=== PATIENT | male | born 1955 | race Caucasian/White ===

== ENCOUNTER 2016-09-07 21:18 | Emergency (ER) | payer OTHER ==
[2016-09-07 21:25] VITALS: BP 100/66; PULSE 71; TEMP 97; BMI 32.3
--- NOTE | 2016-09-07 22:41 | PDOC ---
History of Present Illness - General Chief Complaint: Injury Stated Complaint: INJURY Time Seen by Provider: 09/07/16 21:45 History Source: Patient Exam Limitations: No Limitations - History of Present Illness Initial Comments: 09/07/16 22:17 Chief complaint: Fall with left arm behind him bracing his fall patient has pain left hand or wrist and forearm History of present illness: Patient is a 61-year-old male with a history of hyperlipidemia, depression, hypertension, [id number] diabetes, asthma , COPD, anemia, cardiac disorder DC 2 and knee replacement with chronic pain patient reports that he fell prior to arrival here tonight bracing his fall with his left hand behind him. Patient reports having severe pain in his left hand, wrist radiating to mid forearm. Patient does not have any gross deformity of hand or wrist or forearm noted. Patient reports that he took a Percocet 10 mg prior to arrival here. Patient denies any numbness of left hand or wrist or forearm. Reports that pain is worse with flexion of fingers or wrist. 09/07/16 22:43 09/08/16 23:42 Occurred: reports: just prior to arrival Severity: reports: severe (left hand, wrist radiates to mid forearm ) Pain Location: reports: upper extremity (left hand/wrist, forearm) Method of Injury: Yes: fall Modifying Factors: improves with: None Loss of Consciousness: no loss of consciousness Associated Symptoms (Fall): denies symptoms Past History - Past Medical History Allergies/Adverse Reactions: Allergies Allergy/AdvReac Type Severity Reaction Status Date / Time morphine Allergy Itching Verified 09/07/16 21:21 Home Medications: Ambulatory Orders Aspirin [ASA -] 81 mg PO DAILY 11/18/14 Atorvastatin Ca [Lipitor] 20 mg PO HS 11/18/14 Clopidogrel Bisulfate [Plavix -] 75 mg PO DAILY 11/18/14 Escitalopram Oxalate [Lexapro -] 20 mg PO DAILY 11/18/14 Fenofibrate Nanocrystallized [Tricor] 145 mg PO DAILY 11/18/14 Lisinopril [Prinivil] 5 mg PO DAILY 11/18/14 Metformin HCl [Glucophage] 1,000 mg PO BID 11/18/14 Metoprolol Succinate [Toprol Xl] 50 mg PO DAILY 11/18/14 Insulin (Levemir) [Levemir Vial] 20 units SQ HS ml 06/11/15 Oxycodone HCl/Acetaminophen [Percocet 10-325 mg Tablet -] 1 - 2 tab PO Q4H #180 tablet 06/11/15 Pantoprazole Sodium [Protonix -] 40 mg PO DAILY #30 tablet.ec 06/11/15 Anemia: Yes (after knee replacement) Asthma: Yes Cancer: No Cardiac Disorders: Yes (palpitations/chest pain, MIx2) CVA: No COPD: Yes CHF: No Dementia: No Diabetes: Yes GI Disorders: No Disorders: No HTN: Yes Hypercholesterolemia: Yes Liver Disease: No Suicide Attempt (Hx): No Seizures: No Thyroid Disease: No - Surgical History Abdominal Surgery: No Appendectomy: Yes Cardiac Surgery: Yes (STENT X 23 OCT 2012) Cholecystectomy: No Lung Surgery: Yes ("lung lymph node biopsy") Neurologic Surgery: No Orthopedic Surgery: Yes (bilateral knee surgries) - Psycho/Social/Smoking Cessation Hx Anxiety: Yes Suicidal Ideation: No Smoking Status: Yes Smoking History: Current every day smoker Have you smoked in the past 12 months: Yes Number of Cigarettes Smoked Daily: 40 Information on smoking cessation initiated: Yes 'Breaking Loose' booklet given: 09/07/16 Hx Alcohol Use: No Drug/Substance Use Hx: No Substance Use Type: None Hx Substance Use Treatment: No Review of Systems - Review of Systems Constitutional: Yes: Symptoms Reported Respiratory: No: Symptoms reported Cardiac (ROS): No: Symptoms Reported Musculoskeletal: Yes: Joint Pain (left hand, wrist radiates to left forearm), Joint Swelling (minimal left wrist) Integumentary: No: Symptoms Reported Neurological: No: Symptoms reported *Physical Exam - Vital Signs Last Vital Signs Temp Pulse Resp BP Pulse Ox 97 F L 71 18 100/66 97 09/07/16 21:21 09/07/16 21:21 09/07/16 21:21 09/07/16 21:21 09/07/16 21:21 - Physical Exam Respiratory/Chest: positive: Lungs Clear, Normal Breath Sounds. negative: Chest Tender, Respiratory Distress Cardiovascular: positive: Regular Rhythm, Regular Rate, S1, S2 Comments:: 09/08/16 23:42 Radial pulse left 4+ Musculoskeletal: positive: Normal Inspection. negative: CVA Tenderness, CVA Tenderness (R), CVA Tenderness (L), Vertebral Tenderness Extremity: positive: Normal Capillary Refill, Tender (left dorsal hand, left wrist b/l, left distal to mid forearm dorsally), Swelling (minimal left wrist b/ l ). negative: Normal Range of Motion (left wrist ) Integumentary: positive: Normal Color Neurologic: positive: Alert, Normal Response, Respond to painful stimul (left hand, finger, wrist and forearm), Responsive. negative: Numbness, Sensory Deficit (left hand/digits, wrist and forearm) Procedures - Consent Consent obtained: From Patient - Splinting Splint Location: Left: Wrist, Forearm Pre-Proc Neuro Vasc Exam: normal Hand-Made Type: orthoglass Splint Type: Yes: Short Arm (left volar/dorsal ) Post-Proc Neuro Vasc Exam: normal Rock Bandage: 3" Sling: Yes (left ) Complications: No ED Treatment Course - RADIOLOGY Radiology Studies Ordered: Category Date Time Status FOREARM- LEFT [RAD] Stat Radiology 09/07/16 21:50 Taken WRIST W/HAND-LEFT* [RAD] Stat Radiology 09/07/16 21:50 Taken Medical Decision Making - Medical Decision Making 09/07/16 22:19 Patient is a 61-year-old male with a history of hyperlipidemia, depression, hypertension, yud-svvmmkn-uyqvkygoq diabetes, and chronic pain patient reports that he fell prior to arrival here tonight bracing his fall with his left hand behind him. Patient reports having severe pain in his left hand, wrist radiating to mid forearm. Patient does not have any gross deformity of hand or wrist or forearm noted. Patient reports that he took a Percocet 10 mg prior to arrival here. Patient denies any numbness of left hand or wrist or forearm. Reports that pain is worse with flexion of fingers or wrist. He has more Percocet at home Rule out fractured left hand left wrist left forearm Fall sprain left hand, wrist/forearm Plan: X-ray left hand, wrist, forearm negative for fracture per Dr. Chavez orthoglass left wrist, forearm dorsal/volar sling Patient to follow up with orthopedist for further evaluation tomorrow 09/08/16 23:41 09/08/16 23:41 09/08/16 23:45 09/08/16 23:45 *DC/Admit/Observation/Transfer Diagnosis at time of Disposition: Sprain of left wrist Qualifiers: Encounter type: initial encounter Qualified Code(s): S63.502A - Unspecified sprain of left wrist, initial encounter Sprain of hand, left Qualifiers: Encounter type: initial encounter Qualified Code(s): S63.92XA - Sprain of unspecified part of left wrist and hand, initial encounter Sprain of forearm, left Qualifiers: Encounter type: initial encounter Qualified Code(s): S63.502A - Unspecified sprain of left wrist, initial encounter - Discharge Dispostion Disposition: HOME Condition at time of disposition: Stable - Referrals Referrals: Vanessa Caban MD [Primary Care Provider] - Cayetano Steele MD [Staff Physician] - - Patient Instructions Additional Instructions: Follow up with orthopedist tomorrow you may go see Dr. Steele or go to your orthopedist if he will see her tomorrow Keep Ortho-Glass splint in place and use sling during the day may take sling off and elevate on pillows at night or sleep and is semi-seated position with pillows behind few Take your pain medication as previously ordered Apply ice every hour and a 2:30 hours for 15-20 minutes each time while awake today and tomorrow Return to emergency room if any numbness of left hand wrist or arm or any new symptoms develop Patient voiced understanding of discharge instructions and all questions were answered
== END 2016-09-07 23:06 | disposition home or self-care (01) ==
LOC: JERFT 21:18
DX: S63.592A Other specified sprain of left wrist, initial encounter (principal); S63.8X2A Sprain of other part of left wrist and hand, initial encounter; S56.912A Strain of unspecified muscles, fascia and tendons at forearm level, left arm, initial encounter; W00.0XXA Fall on same level due to ice and snow, initial encounter; Y93.89 Activity, other specified; Y92.488 Other paved roadways as the place of occurrence of the external cause; I25.2 Old myocardial infarction; I10 Essential (primary) hypertension; E11.9 Type 2 diabetes mellitus without complications; Z79.4 Long term (current) use of insulin; Z79.84 Long term (current) use of oral hypoglycemic drugs; E78.00 Pure hypercholesterolemia, unspecified; J44.9 Chronic obstructive pulmonary disease, unspecified; J45.909 Unspecified asthma, uncomplicated
CPT/HCPCS: 73090-TC-LT; 73110-TC-LT; 73130-TC-LT; 99281-25

== ENCOUNTER 2017-01-24 09:56 | Emergency (ER) | payer OTHER ==
[2017-01-24 10:09] VITALS: BP 138/78; PULSE 99; TEMP 98; BMI 30.3
--- NOTE | 2017-01-24 10:29 | PDOC ---
History of Present Illness - General History Source: Patient Exam Limitations: No Limitations - History of Present Illness Initial Comments: 01/24/17 10:45 The patient is a 61 year old male, with a significant past medical history of anemia, asthma, PA (X2), HTN, HLD, diabetes, and COPD, who presents to the emergency department due to coughing up blood since this morning. He reports a few days ago he had a fever, as high as 102.3, chills and had a cough. He went to urgent care on 01/22/2017, had a chest x-ray and was diagnosed with pneumonia. He was prescribed Augmentin and a Z-pack. He was discharged home same day. On presentation the patient also notes that he is short of breath, which is not consistent with her past COPD exacerbations. He also reports dizziness and worsening of his initial symptoms. The patient denies chest pain, headache, nausea, vomit, diarrhea and constipation. Denies dysuria, frequency, urgency and hematuria. Allergies: Morphine Past surgical history: Appendectomy, cardiac stents, bilateral knee surgeries, lung lymph node biopsy Social history: Smoker (30 daily). No alcohol or drug use reported <Nino Dutta - Last Filed: 01/24/17 10:44> <Javier Elliott - Last Filed: 01/24/17 14:00> - General Chief Complaint: Hemoptysis Stated Complaint: FEVER, COUGHING UP BLOOD Time Seen by Provider: 01/24/17 10:29 Past History <Nino Dutta - Last Filed: 01/24/17 10:44> - Past Medical History Anemia: Yes (after knee replacement) Asthma: Yes Cancer: No Cardiac Disorders: Yes (palpitations/chest pain, MIx2) CVA: No COPD: Yes CHF: No Dementia: No Diabetes: Yes GI Disorders: No Disorders: No HTN: Yes Hypercholesterolemia: Yes Liver Disease: No Suicide Attempt (Hx): No Seizures: No Thyroid Disease: No - Surgical History Abdominal Surgery: No Appendectomy: Yes Cardiac Surgery: Yes (STENT X 23 OCT 2012) Cholecystectomy: No Lung Surgery: Yes ("lung lymph node biopsy") Neurologic Surgery: No Orthopedic Surgery: Yes (bilateral knee surgries) - Immunization History Immunization Up to Date: Yes - Psycho/Social/Smoking Cessation Hx Anxiety: Yes Suicidal Ideation: No Smoking Status: Yes Smoking History: Current every day smoker Have you smoked in the past 12 months: Yes Number of Cigarettes Smoked Daily: 30 Information on smoking cessation initiated: No 'Breaking Loose' booklet given: 09/07/16 Hx Alcohol Use: No Drug/Substance Use Hx: No Substance Use Type: None Hx Substance Use Treatment: No <Javier Elliott - Last Filed: 01/24/17 14:00> - Past Medical History Allergies/Adverse Reactions: Allergies Allergy/AdvReac Type Severity Reaction Status Date / Time morphine Allergy Itching Verified 01/24/17 10:09 Home Medications: Ambulatory Orders Aspirin [ASA -] 81 mg PO DAILY 11/18/14 Atorvastatin Ca [Lipitor] 20 mg PO HS 11/18/14 Clopidogrel Bisulfate [Plavix -] 75 mg PO DAILY 11/18/14 Escitalopram Oxalate [Lexapro -] 20 mg PO DAILY 11/18/14 Fenofibrate Nanocrystallized [Tricor] 145 mg PO DAILY 11/18/14 Lisinopril [Prinivil] 5 mg PO DAILY 11/18/14 Metformin HCl [Glucophage] 1,000 mg PO BID 11/18/14 Metoprolol Succinate [Toprol Xl] 50 mg PO DAILY 11/18/14 Insulin (Levemir) [Levemir Vial] 20 units SQ HS ml 06/11/15 Oxycodone HCl/Acetaminophen [Percocet 10-325 mg Tablet -] 1 - 2 tab PO Q4H #180 tablet 06/11/15 Pantoprazole Sodium [Protonix -] 40 mg PO DAILY #30 tablet.ec 06/11/15 Review of Systems - Review of Systems Able to Perform ROS?: Yes Comments:: 01/24/17 10:45 GENERAL/CONSTITUTIONAL: (+) Fever, chills. No weakness. HEAD, EYES, EARS, NOSE AND THROAT: No change in vision. No ear pain or discharge. No sore throat. CARDIOVASCULAR: (+) Shortness of breath. No chest pain RESPIRATORY: (+) Cough, hemoptysis. No wheezing, or hemoptysis. GASTROINTESTINAL: No nausea, vomiting, diarrhea or constipation. GENITOURINARY: No dysuria, frequency, or change in urination. MUSCULOSKELETAL: No joint or muscle swelling or pain. No neck or back pain. SKIN: No rash NEUROLOGIC: (+) Dizziness. No headache, loss of consciousness, or change in strength/sensation. ENDOCRINE: No increased thirst. No abnormal weight change HEMATOLOGIC/LYMPHATIC: No anemia, easy bleeding, or history of blood clots. ALLERGIC/IMMUNOLOGIC: No hives or skin allergy. <Nino Dutta - Last Filed: 01/24/17 10:44> *Physical Exam - Vital Signs Last Vital Signs Temp Pulse Resp BP Pulse Ox 98.0 F 99 H 20 138/78 96 01/24/17 10:06 01/24/17 10:06 01/24/17 10:06 01/24/17 10:06 01/24/17 10:06 - Physical Exam Comments: 01/24/17 10:45 GENERAL: Awake, alert, and fully oriented, in no acute distress HEAD: No signs of trauma, normocephalic, atraumatic EYES: PERRLA, EOMI, sclera anicteric, conjunctiva clear ENT: Auricles normal inspection, hearing grossly normal, nares patent, oropharynx clear without exudates. Moist mucosa NECK: Normal ROM, supple, no lymphadenopathy, JVD, or masses LUNGS: (+) Diffused ronchi with expiratory wheezing. No distress, speaks full sentences. HEART: Regular rate and rhythm, normal S1 and S2, no murmurs, rubs or gallops, peripheral pulses normal and equal bilaterally. ABDOMEN: Soft, nontender, normoactive bowel sounds. No guarding, no rebound. No masses EXTREMITIES: Normal inspection, Normal range of motion, no edema. No clubbing or cyanosis. NEUROLOGICAL: Cranial nerves II through XII grossly intact. Normal speech, normal gait, no focal sensorimotor deficits SKIN: Warm, Dry, normal turgor, no rashes or lesions noted. <Nino Dutta - Last Filed: 01/24/17 10:44> - Vital Signs Last Vital Signs Temp Pulse Resp BP Pulse Ox 98.0 F 99 H 20 138/78 96 01/24/17 10:06 01/24/17 10:06 01/24/17 10:06 01/24/17 10:06 01/24/17 10:06 <Javier Elliott - Last Filed: 01/24/17 14:00> ED Treatment Course - LABORATORY CBC & Chemistry Diagram: 01/24/17 11:35 01/24/17 11:35 <Javier Elliott - Last Filed: 01/24/17 14:00> Medical Decision Making - Medical Decision Making 01/24/17 10:53 61 M with h/o CAD/PA, COPD/asthma, presenting to ER with 5 days of cough and fevers, with 2 episodes of hemoptysis, now resolved. Was diagnosed with PNA 2 days ago and started on augmentin and z-pack. Symptoms consistent with diagnosis of PNA. Pt with no risk factors for HCAP (last hospitalization 1 year ago). Hemoptysis seems mild, as pt reports only 2 episodes of blood tinged sputum. When sputum was collected in ER, it is observed to be white with no blood. Pt with no risk factors for TB (no travel or incarceration history, no known contacts with TB). Lung exam suggests component of COPD, as pt actively wheezing. - CXR - Labs, cultures - Nebulizers + steroids for COPD - Reassess 01/24/17 13:57 Pt reassessed s/p nebs and steroids. Pt states he feels significantly better. Has not had any additional episodes of hemoptysis in ER. CXR with R sided consolidation, consistent with PNA. Labs unremarkable. Pt stable for DC at this time. <Javier Elliott - Last Filed: 01/24/17 14:00> *DC/Admit/Observation/Transfer - Attestations Scribe Attestion: 01/24/17 10:45 Documentation prepared by Nino Dutta, acting as medical sociologist for Javier Elliott MD <Nino Dutta - Last Filed: 01/24/17 10:44> - Discharge Dispostion Admit: No - Attestations Physician Attestion: 01/24/17 14:00 I, Dr. Javier Elliott MD, attest that this document has been prepared under my direction and personally reviewed by me in its entirety. I further attest, that it accurately reflects all work, treatment, procedures and medical decision -making performed by me. <Javier Elliott - Last Filed: 01/24/17 14:00> Diagnosis at time of Disposition: Pneumonia - Discharge Dispostion Disposition: HOME Condition at time of disposition: Stable - Patient Instructions Printed Discharge Instructions: Pneumonia-Adult Additional Instructions: Continue taking your antibiotics and steroids as prescribed. Use your nebulizer every 4 hours as needed for coughing and wheezing. Follow up with your primary care doctor within 2-3 weeks for a re-evaluation. You will need a repeat CT scan to ensure you have no new lung masses. Print Language: HONDURAN
[2017-01-24] MEDS ORDERED: ALBUTEROL SO4 2.5/IPRATROPIUM 0.5 INH SOL 3 ML VIAL.NEB. NEB ONE (10:43)
[2017-01-24] MEDS ORDERED: methylPREDNISolone NA SUCC 125 MG/2 ML VIAL IVPB ONE (10:43)
[2017-01-24 11:47] LABS: VENOUS BLOOD GAS HCO3 22.1 meq/L (19-25); VENOUS PH 7.4 (7.32-7.42)
[2017-01-24 11:48] LABS: BASOPHIL 0.2 % (0-2.0); EOSINOPHIL 0.4 % (0-4.5); MCH 27.1 pg (25.7-33.7); MCHC 32.5 g/dl (32.0-35.9); MEAN CELL VOLUME 83.6 fl (80-96); NEUTROPHILS 91.7 % (42.8-82.8); PLATELET COUNT 174 K/MM3 (134-434); RDW 19.4 % (11.9-15.9); WHITE BLOOD COUNT 11.5 K/mm3 (4.0-10.0)
[2017-01-24 12:28] LABS: ALBUMIN 3.3 g/dl (3.4-5.0); ALK PHOS 83 U/L (45-117); ANION GAP 9 (8-16); BILIRUBIN,TOTAL 0.4 mg/dL (0.2-1.0); CALCIUM 9.1 mg/dL (8.5-10.1); CO2 23 mmol/L (21-32); CREATININE 1.3 mg/dL (0.7-1.3); GLUCOSE,RANDOM 253 mg/dL (74-106); SGOT/AST 48 U/L (15-37); SGPT/ALT 43 U/L (12-78); TOT PROT 7.1 g/dl (6.4-8.2)
== END 2017-01-24 14:31 | disposition home or self-care (01) ==
LOC: JER 09:56
PROC: 3E0333Z Introduction of Anti-inflammatory into Peripheral Vein, Percutaneous Approach (ICD-10-PCS; principal; 2017-01-24)
PROC: 3E0F7GC Introduction of Other Therapeutic Substance into Respiratory Tract, Via Natural or Artificial Opening (ICD-10-PCS; 2017-01-24)
DX: J18.9 Pneumonia, unspecified organism (principal); J45.909 Unspecified asthma, uncomplicated; J44.9 Chronic obstructive pulmonary disease, unspecified; D64.9 Anemia, unspecified; I25.2 Old myocardial infarction; E78.5 Hyperlipidemia, unspecified; E11.9 Type 2 diabetes mellitus without complications; I10 Essential (primary) hypertension; J95.5 Postprocedural subglottic stenosis; F17.210 Nicotine dependence, cigarettes, uncomplicated; Z88.6 Allergy status to analgesic agent; Z79.82 Long term (current) use of aspirin; Z79.84 Long term (current) use of oral hypoglycemic drugs; Z79.4 Long term (current) use of insulin
CPT/HCPCS: 36415; 71020-TC; 80053; 82803; 83605; 85025; 87040; 94640; 96374; 99283-25

== ENCOUNTER 2017-02-02 14:55 | Inpatient (IN) | payer OTHER ==
[2017-02-02] MEDS ORDERED: VANCOMYCIN 1,000 MG in DEXTROSE 5%-WATER - 250 ML IVPB ONE (15:26)
[2017-02-02] MEDS ORDERED: PIPERACILLIN/TAZOB 3.375 GM/50 ML PRE-DOCKED IV ONE (15:27)
--- NOTE | 2017-02-02 15:33 | PDOC ---
History of Present Illness - General History Source: Patient - History of Present Illness Timing/Duration: reports: other Associated Symptoms: reports: cough, shortness of breath. denies: chest pain/ soreness, fever/chills, wheezing <aHnnah Parmar - Last Filed: 02/02/17 17:43> <Rae Reyes - Last Filed: 02/03/17 17:23> - General Chief Complaint: Respiratory Stated Complaint: WORSENING PNEUMONIA Time Seen by Provider: 02/02/17 15:18 Past History - Past Medical History Anemia: Yes (after knee replacement) Asthma: Yes Cancer: No Cardiac Disorders: Yes (palpitations/chest pain, MIx2) CVA: No COPD: Yes CHF: No Dementia: No Diabetes: Yes GI Disorders: No Disorders: No HTN: Yes Hypercholesterolemia: Yes Liver Disease: No Suicide Attempt (Hx): No Seizures: No Thyroid Disease: No - Surgical History Abdominal Surgery: No Appendectomy: Yes Cardiac Surgery: Yes (STENT X 23 OCT 2012) Cholecystectomy: No Lung Surgery: Yes ("lung lymph node biopsy") Neurologic Surgery: No Orthopedic Surgery: Yes (bilateral knee surgries) - Immunization History Immunization Up to Date: Yes - Psycho/Social/Smoking Cessation Hx Anxiety: Yes Suicidal Ideation: No Smoking Status: Yes Smoking History: Current every day smoker Have you smoked in the past 12 months: Yes Number of Cigarettes Smoked Daily: 30 Information on smoking cessation initiated: No 'Breaking Loose' booklet given: 09/07/16 Hx Alcohol Use: No Drug/Substance Use Hx: No Substance Use Type: None Hx Substance Use Treatment: No <Hannah Parmar - Last Filed: 02/02/17 17:43> <Rae Reyes - Last Filed: 02/03/17 17:23> - Past Medical History Allergies/Adverse Reactions: Allergies Allergy/AdvReac Type Severity Reaction Status Date / Time morphine Allergy Itching Verified 02/02/17 14:57 Home Medications: Ambulatory Orders Aspirin [ASA -] 81 mg PO DAILY 11/18/14 Atorvastatin Ca [Lipitor] 20 mg PO HS 11/18/14 Clopidogrel Bisulfate [Plavix -] 75 mg PO DAILY 11/18/14 Escitalopram Oxalate [Lexapro -] 20 mg PO DAILY 11/18/14 Fenofibrate Nanocrystallized [Tricor] 145 mg PO DAILY 11/18/14 Lisinopril [Prinivil] 5 mg PO DAILY 11/18/14 Metformin HCl [Glucophage] 1,000 mg PO BID 11/18/14 Metoprolol Succinate [Toprol Xl] 50 mg PO DAILY 11/18/14 Insulin (Levemir) [Levemir Vial] 20 units SQ HS ml 06/11/15 Oxycodone HCl/Acetaminophen [Percocet 10-325 mg Tablet -] 1 - 2 tab PO Q4H #180 tablet 06/11/15 Pantoprazole Sodium [Protonix -] 40 mg PO DAILY #30 tablet.ec 06/11/15 Review of Systems - Review of Systems Constitutional: No: Chills, Fever Respiratory: Yes: Cough, Shortness of Breath. No: Wheezing Cardiac (ROS): No: Chest Pain, Lightheadedness <Hannah Parmar - Last Filed: 02/02/17 17:43> *Physical Exam - Vital Signs Last Vital Signs Temp Pulse Resp BP Pulse Ox 98.2 F 94 H 19 109/62 97 02/02/17 14:57 02/02/17 14:57 02/02/17 14:57 02/02/17 14:57 02/02/17 14:57 - Physical Exam General Appearance: Yes: Appropriately Dressed. No: Apparent Distress HEENT: positive: Normal Voice Neck: positive: Supple Respiratory/Chest: positive: Rhonchi. negative: Respiratory Distress Cardiovascular: positive: Regular Rate, S1, S2 Gastrointestinal/Abdominal: positive: Soft. negative: Tender Extremity: positive: Normal Inspection Integumentary: positive: Dry, Warm Neurologic: positive: Fully Oriented, Alert, Normal Mood/Affect <Hannah Parmar - Last Filed: 02/02/17 17:43> - Vital Signs Last Vital Signs Temp Pulse Resp BP Pulse Ox 98.4 F 80 18 127/77 93 L 02/03/17 14:43 02/03/17 14:43 02/03/17 14:43 02/03/17 14:43 02/03/17 11:20 <Rae Reyes - Last Filed: 02/03/17 17:23> Heart Score/ECG Review - ECG Intrepretation Comment:: 02/02/17 15:57 Twelve-lead EKG was performed and reviewed by me. There is normal sinus rhythm with a normal rate. The axis is normal. The intervals are normal. There are no ST or T wave abnormalities. Impression: Normal twelve-lead EKG <Hannah Parmar - Last Filed: 02/02/17 17:43> ED Treatment Course - LABORATORY CBC & Chemistry Diagram: 02/02/17 15:00 02/02/17 15:00 - RADIOLOGY Radiology Studies Ordered: Category Date Time Status CHEST PA & LAT [RAD] Stat Radiology 02/02/17 15:24 Ordered <Hannah Parmar - Last Filed: 02/02/17 17:43> - LABORATORY CBC & Chemistry Diagram: 02/03/17 07:30 02/03/17 07:30 - ADDITIONAL ORDERS Additional order review: 02/02/17 15:30 Blood Culture - Preliminary Blood - Peripheral Venous NO GROWTH OBTAINED AFTER 24 HOURS, INCUBATION TO CONTINUE FOR 4 DAYS. 02/02/17 15:25 Blood Culture - Preliminary Blood - Peripheral Venous NO GROWTH OBTAINED AFTER 24 HOURS, INCUBATION TO CONTINUE FOR 4 DAYS. 02/02/17 15:00 RBC 5.05 MCV 84.5 MCHC 33.1 RDW 18.6 H MPV 7.7 Neutrophils % 70.7 D Lymphocytes % 21.2 D Monocytes % 5.3 D Eosinophils % 1.4 D Basophils % 1.4 D - Medications Given in the ED: ED Medications Discontinued Medications Generic Name Dose Route Start Last Admin Trade Name Freq PRN Reason Stop Dose Admin Albuterol/Ipratropium 1 amp 02/02/17 15:45 02/02/17 15:46 Duoneb - NEB 02/02/17 16:31 1 amp Q15M SHEA Administration Guaifenesin 10 ml 02/02/17 17:51 02/02/17 17:53 Robitussin Dm - PO 02/02/17 17:52 10 ml ONCE ONE Administration Vancomycin HCl 1,000 mg/ 250 mls @ 250 mls/hr 02/02/17 15:26 02/02/17 16:10 Dextrose IVPB 02/02/17 16:25 250 mls/hr ONCE ONE Administration Protocol Sodium Chloride 1,000 mls @ 1,000 mls/hr 02/02/17 17:52 02/02/17 17:53 Normal Saline - IV 02/02/17 18:51 1,000 mls/hr ASDIR STA Administration Methylprednisolone Sodium Succinate 125 mg 02/02/17 15:34 02/02/17 15:46 Solu-Medrol - IVPB 02/02/17 15:35 125 mg ONCE ONE Administration Piperacillin Sod/Tazobactam Sod 3.375 gm 02/02/17 15:27 02/02/17 15:56 Zosyn 3.375gm Ivpb (Pre-Docked) IV 02/02/17 15:28 3.375 gm ONCE ONE Administration Protocol Piperacillin Sod/Tazobactam Sod 4.5 gm 02/02/17 21:00 02/03/17 09:38 Zosyn 4.5gm Ivpb (Pre-Docked) IVPB 02/03/17 09:01 4.5 gm Q6H SHEA Administration <Rae Reyes - Last Filed: 02/03/17 17:23> Medical Decision Making - Medical Decision Making 02/02/17 15:29 61-year-old male history of hypertension, [place] 2, s/p stent x 1, COPD who continues to smoke, not on home oxygen, recurrent pneumonias, here with persistent productive cough and shortness of breath. Patient was diagnosed with pneumonia last week at urgent care center and started on Augmentin, Z-Pack and Medrol Dosepak. Patient then presented to [facility] ED the very next day with possible hemoptysis and had repeat chest x-ray, which demonstrated right- sided pneumonia. Improved in ED and was discharged home. Pt returns today with complaint that symptoms have not improved and continues to feel short of breath and now feels fatigued. No fever, chills or chest pain. See exam PNA, failed out-pt treatment Stable w/ rhonchorus lungs -cxr -labs -nebs -solumedrol -admit for IV abx 02/02/17 15:35 02/02/17 15:50 Residual pneumonic infiltrate to RUL on CXR. Abx in progress 02/02/17 17:44 Case d/w covering MD for pt's PMD, Dr Laurent, and pt admitted <Hannah Parmar - Last Filed: 02/02/17 17:43> *DC/Admit/Observation/Transfer - Discharge Dispostion Admit: Yes <Hannah Parmar - Last Filed: 02/02/17 17:43> - Attestations Physician Attestion: I reviewed the case with the mid-level practitioner and agree with the mid- level practitioner's assessment, diagnosis and disposition. <Rae Reyes - Last Filed: 02/03/17 17:23> Diagnosis at time of Disposition: Pneumonia Qualifiers: Pneumonia type: due to unspecified organism Laterality: right Lung location: upper lobe of lung Qualified Code(s): J18.1 - Lobar pneumonia, unspecified organism - Discharge Dispostion Disposition: HOME Condition at time of disposition: Good - Referrals
[2017-02-02] MEDS ORDERED: methylPREDNISolone NA SUCC 125 MG/2 ML VIAL IVPB ONE (15:34)
[2017-02-02] MEDS: ALBUTEROL SO4 2.5/IPRATROPIUM 0.5 INH SOL 3 ML VIAL.NEB. NEB SCH (15:46)
[2017-02-02] MEDS ORDERED: methylPREDNISolone NA SUCC 125 MG/2 ML VIAL ONE (15:56)
[2017-02-02] MEDS ORDERED: VANCOMYCIN 1 GRAM (PRE-DOCKED) 250 ML IVPB ONE (15:56)
[2017-02-02] MEDS ORDERED: PIPERACILLIN/TAZOB 3.375 GM 50 ML IVPB ONE (15:56)
[2017-02-02] MEDS ORDERED: ALBUTEROL SO4 2.5/IPRATROPIUM 0.5 INH SOL 3 ML VIAL.NEB. NEB ONE (16:00)
[2017-02-02 16:07] LABS: BASOPHIL 1.4 % (0-2.0); EOSINOPHIL 1.4 % (0-4.5); MCHC 33.1 g/dl (32.0-35.9); MEAN CELL VOLUME 84.5 fl (80-96); MEAN PLT VOLUME 7.7 fl (7.5-11.1); NEUTROPHILS 70.7 % (42.8-82.8); PLATELET COUNT 322 K/MM3 (134-434); RDW 18.6 % (11.9-15.9); WHITE BLOOD COUNT 10.7 K/mm3 (4.0-10.0)
[2017-02-02 16:33] LABS: ALBUMIN 3.6 g/dl (3.4-5.0); ANION GAP 9 (8-16); BILIRUBIN,TOTAL 0.4 mg/dL (0.2-1.0); CALCIUM 9.1 mg/dL (8.5-10.1); CO2 28 mmol/L (21-32); CPK 168 IU/L (39-308); CREATININE 1.2 mg/dL (0.7-1.3); GLUCOSE,RANDOM 183 mg/dL (74-106); SGOT/AST 23 U/L (15-37); SGPT/ALT 49 U/L (12-78); TOT PROT 7.3 g/dl (6.4-8.2)
[2017-02-02 16:35] LABS: ALK PHOS 79 U/L (45-117); TROPONIN I < 0.02 ng/ml (0.00-0.05)
[2017-02-02] MEDS ORDERED: guaiFENesin/D-METHORPHAN HB 10 ML UNIT-DOSE CUPS PO ONE (17:51)
[2017-02-02] MEDS ORDERED: SODIUM CHLORIDE 1,000 ML IV STA (17:52)
[2017-02-02] MEDS ORDERED: guaiFENesin/D-METHORPHAN HB 10 ML UNIT-DOSE CUPS ONE (17:53)
[2017-02-02 18:17] LABS: URINE APPEARANCE CLEAR; URINE BILIRUBIN NEGATIVE (NEGATIVE); URINE BLOOD NEGATIVE (NEGATIVE); URINE COLOR YELLOW; URINE GLUCOSE (UA) 1+ (NEGATIVE); URINE KETONE NEGATIVE (NEGATIVE); URINE LEUK ESTERASE NEGATIVE (NEGATIVE); URINE NITRITE NEGATIVE (NEGATIVE); URINE PROTEIN NEGATIVE (NEGATIVE); URINE UROBILINOGEN NEGATIVE mg/dL (0.2-1.0)
--- NOTE | 2017-02-02 18:49 | HP ---
Admitting History and Physical - Admission Chief Complaint: Dyspnea History of Present Illness: 61-year-old male who was being treated for pneumonia with oral antibiotics, presents to the emergency room with increasing cough and dyspnea on exertion after initial improvement on antibiotics. The symptoms worsen with activity and improve slightly with medications. History Source: Patient, Medical Record Limitations to Obtaining History: No Limitations - Past Medical History Cardiovascular: Yes: CAD (STEMI 2012 s/p stents) Pulmonary: Yes: COPD Musculoskeletal: Yes: Osteoarthritis Endocrine: Yes: Diabetes Mellitus - Past Surgical History Past Surgical History: Yes: Joint Replacement (R TKR 2009) - Smoking History Smoking history: Current every day smoker Have you smoked in the past 12 months: Yes Aproximately how many cigarettes per day: 30 - Alcohol/Substance Use Hx Alcohol Use: No - Social History ADL: Independent History of Recent Travel: No Home Medications - Allergies Allergies/Adverse Reactions: Allergies Allergy/AdvReac Type Severity Reaction Status Date / Time morphine Allergy Itching Verified 02/02/17 14:57 - Home Medications Home Medications: Ambulatory Orders Aspirin [ASA -] 81 mg PO DAILY 11/18/14 Atorvastatin Ca [Lipitor] 20 mg PO HS 11/18/14 Clopidogrel Bisulfate [Plavix -] 75 mg PO DAILY 11/18/14 Escitalopram Oxalate [Lexapro -] 20 mg PO DAILY 11/18/14 Fenofibrate Nanocrystallized [Tricor] 145 mg PO DAILY 11/18/14 Lisinopril [Prinivil] 5 mg PO DAILY 11/18/14 Metformin HCl [Glucophage] 1,000 mg PO BID 11/18/14 Metoprolol Succinate [Toprol Xl] 50 mg PO DAILY 11/18/14 Insulin (Levemir) [Levemir Vial] 20 units SQ HS ml 06/11/15 Oxycodone HCl/Acetaminophen [Percocet 10-325 mg Tablet -] 1 - 2 tab PO Q4H #180 tablet 06/11/15 Pantoprazole Sodium [Protonix -] 40 mg PO DAILY #30 tablet.ec 06/11/15 Family Disease History - Family Disease History Family History: Unremarkable Review of Systems - Review of Systems Constitutional: reports: No Symptoms Cardiovascular: reports: No Symptoms Respiratory: reports: Cough, SOB, SOB on Exertion Gastrointestinal: reports: No Symptoms Neurological: reports: No Symptoms Physical Examination Vital Signs: Vital Signs Temperature 98.7 F 02/02/17 17:59 Pulse Rate 92 H 02/02/17 17:59 Respiratory Rate 18 02/02/17 17:59 Blood Pressure 134/65 02/02/17 17:59 O2 Sat by Pulse Oximetry (%) 97 02/02/17 17:59 Constitutional: Yes: No Distress Neck: Yes: Supple Cardiovascular: Yes: Regular Rate and Rhythm, S1, S2 Respiratory: Yes: CTA Bilaterally Gastrointestinal: Yes: Normal Bowel Sounds, Soft Neurological: Yes: Alert, Oriented. No: Loss of Sensation ...Motor Strength: WNL Imaging - Results Chest X-ray: Report Reviewed Problem List - Problems (1) Pneumonia Assessment/Plan: Continue antibiotics, ID evaluation Code(s): J18.9 - PNEUMONIA, UNSPECIFIED ORGANISM Qualifiers: Pneumonia type: due to unspecified organism Laterality: right Lung location: upper lobe of lung Qualified Code(s): J18.1 - Lobar pneumonia, unspecified organism (2) Smoker Assessment/Plan: Ongoing discussion regarding smoking cessation. Counselling in detail Code(s): F17.200 - NICOTINE DEPENDENCE, UNSPECIFIED, UNCOMPLICATED (3) COPD exacerbation Assessment/Plan: Steroids, nebulization, pulmonary evaluation Code(s): J44.1 - CHRONIC OBSTRUCTIVE PULMONARY DISEASE W (ACUTE) EXACERBATION
[2017-02-02] MEDS ORDERED: PIPERACILLIN/TAZOB 4.5 GM/100 ML PRE-DOCKED IVPB SCH (21:00)
[2017-02-02] MEDS ORDERED: ACETAMINOPHEN 325 MG TABLET (FP) PO PRN (21:33)
[2017-02-02] MEDS: PIPERACILLIN/TAZOB 4.5 GM/100 ML PRE-DOCKED IVPB SCH (21:58)
[2017-02-02] MEDS: INSULIN DETEMIR 100 UNITS/ML MDV SQ SCH (21:59)
[2017-02-02] MEDS: ATORVASTATIN CA 20 MG TABLET (FP) PO SCH (22:00)
[2017-02-02] MEDS ORDERED: ALBUTEROL SO4 2.5/IPRATROPIUM 0.5 INH SOL 3 ML VIAL.NEB. NEB PRN (22:41)
[2017-02-02] MEDS: methylPREDNISolone NA SUCC 40 MG/1 ML VIAL IVPB SCH (23:50)
[2017-02-03 00:43] VITALS: BMI 30.2
[2017-02-03] MEDS: PIPERACILLIN/TAZOB 4.5 GM/100 ML PRE-DOCKED IVPB SCH ×2 (02:22→09:38)
[2017-02-03] MEDS: methylPREDNISolone NA SUCC 40 MG/1 ML VIAL IVPB SCH ×3 (02:22→19:16)
[2017-02-03] MEDS: metFORMIN HCL 500 MG TABLET (FP) PO SCH ×2 (06:42→19:15)
[2017-02-03 08:25] LABS: BASOPHIL 0.1 % (0-2.0); MCH 27.4 pg (25.7-33.7); MCHC 32.4 g/dl (32.0-35.9); MEAN CELL VOLUME 84.6 fl (80-96); MEAN PLT VOLUME 7.4 fl (7.5-11.1); NEUTROPHILS 90.4 % (42.8-82.8); PLATELET COUNT 251 K/MM3 (134-434); RDW 18.5 % (11.9-15.9); WHITE BLOOD COUNT 13.5 K/mm3 (4.0-10.0)
[2017-02-03 08:38] LABS: ALBUMIN 3.2 g/dl (3.4-5.0); ANION GAP 8 (8-16); CALCIUM 8.7 mg/dL (8.5-10.1); CO2 25 mmol/L (21-32); GLUCOSE,RANDOM 217 mg/dL (74-106)
[2017-02-03 08:41] LABS: ALK PHOS 64 U/L (45-117); BILIRUBIN,TOTAL 0.4 mg/dL (0.2-1.0); CREATININE 1.3 mg/dL (0.7-1.3); SGOT/AST 13 U/L (15-37); SGPT/ALT 38 U/L (12-78); TOT PROT 6.5 g/dl (6.4-8.2)
[2017-02-03] MEDS: oxyCODONE HCL 5 MG TABLET PO PRN ×3 (09:35→23:27)
[2017-02-03] MEDS: ACETAMINOPHEN 325 MG TABLET (FP) PO PRN ×2 (09:36→23:28)
[2017-02-03] MEDS: ASPIRIN 81 MG CHEWABLE TABLETS PO SCH (11:26)
[2017-02-03] MEDS: LISINOPRIL 5 MG TABLET (FP) PO SCH (11:26)
[2017-02-03] MEDS: PANTOPRAZOLE 40 MG TABLET (FP) PO SCH (11:26)
[2017-02-03] MEDS: ESCITALOPRAM OXALATE 20 MG TABLET (FP) PO SCH (11:27)
[2017-02-03] MEDS: METOPROLOL SUCCINATE 50 MG TAB.SR.24H (FP) PO SCH (11:27)
[2017-02-03] MEDS: FENOFIBRIC ACID 135 MG CAP PO SCH (11:27)
[2017-02-03] MEDS: ENOXAPARIN NA (PORCINE) 40 MG/0.4 ML DISP.SYRIN SQ SCH (11:29)
--- NOTE | 2017-02-03 13:29 | EKG ---
Test Reason : Blood Pressure : / mmHG Vent. Rate : 082 BPM Atrial Rate : 082 BPM P-R Int : 158 ms QRS Dur : 082 ms QT Int : 382 ms P-R-T Axes : 056 016 043 degrees QTc Int : 446 ms NORMAL SINUS RHYTHM INFERIOR INFARCT (CITED ON OR BEFORE 19-OCT-2011) ABNORMAL ECG WHEN COMPARED WITH ECG OF 05-JUN-2015 18:52, NO SIGNIFICANT CHANGE WAS FOUND Confirmed by JAZZY SANDS, TEMI ([id number]) on 02/03/2017 1:29:16 PM Referred By: Confirmed By:TEMI PURCELL MD
--- NOTE | 2017-02-03 13:31 | CON.PULM ---
Consult Consult Specialty:: PULM/CCM Referred by:: JOSE ENRIQUE Reason for Consultation:: SOB - History of Present Illness Chief Complaint: SOB History of Present Illness: 61 M, well known to me from multiple admissions for AE of COPD. Recent admission for RUL CAP. Reports increasing in cough and SOB over the past few days. Subjective fever. No hemoptysis. Of note. As I was coming to evaluate the patient he was coming from outside after just smoking a cigarette. CXR: Minimal residual RUL opacity compared to previous admission. - History Source History Provided By: Patient Limitations to Obtaining History: No Limitations - Past Medical History Cardio/Vascular: Yes: CAD (STEMI 2012 s/p stents) Pulmonary: Yes: COPD Musculoskeletal: Yes: Osteoarthritis Endocrine: Yes: Diabetes Mellitus - Past Surgical History Past Surgical History: Yes: Joint Replacement (R TKR 2009) - Alcohol/Substance Use Hx Alcohol Use: No - Smoking History Smoking history: Current every day smoker Have you smoked in the past 12 months: Yes Aproximately how many cigarettes per day: 30 - Social History ADL: Independent History of Recent Travel: No Home Medications - Allergies Allergies/Adverse Reactions: Allergies Allergy/AdvReac Type Severity Reaction Status Date / Time morphine Allergy Itching Verified 02/02/17 14:57 - Home Medications Home Medications: Ambulatory Orders Aspirin [ASA -] 81 mg PO DAILY 11/18/14 Atorvastatin Ca [Lipitor] 20 mg PO HS 11/18/14 Clopidogrel Bisulfate [Plavix -] 75 mg PO DAILY 11/18/14 Escitalopram Oxalate [Lexapro -] 20 mg PO DAILY 11/18/14 Fenofibrate Nanocrystallized [Tricor] 145 mg PO DAILY 11/18/14 Lisinopril [Prinivil] 5 mg PO DAILY 11/18/14 Metformin HCl [Glucophage] 1,000 mg PO BID 11/18/14 Metoprolol Succinate [Toprol Xl] 50 mg PO DAILY 11/18/14 Insulin (Levemir) [Levemir Vial] 20 units SQ HS ml 06/11/15 Oxycodone HCl/Acetaminophen [Percocet 10-325 mg Tablet -] 1 - 2 tab PO Q4H #180 tablet 06/11/15 Pantoprazole Sodium [Protonix -] 40 mg PO DAILY #30 tablet.ec 06/11/15 Review of Systems - Review of Systems Constitutional: reports: Fever, Malaise, Weakness. denies: Chills, Night Sweats Eyes: reports: No Symptoms HENT: reports: No Symptoms Neck: reports: No Symptoms Cardiovascular: reports: Chest Pain, Shortness of Breath. denies: Edema Respiratory: reports: Cough, Snoring, SOB, SOB on Exertion, Wheezing. denies: Hemoptysis Gastrointestinal: reports: No Symptoms Genitourinary: reports: No Symptoms Breasts: reports: No Symptoms Reported Musculoskeletal: reports: No Symptoms Integumentary: reports: No Symptoms Neurological: reports: No Symptoms Endocrine: reports: No Symptoms Hematology/Lymphatic: reports: No Symptoms Psychiatric: reports: No Symptoms Physical Exam Vital Sings: Vital Signs Temperature 97.9 F 02/03/17 06:00 Pulse Rate 99 H 02/03/17 11:20 Respiratory Rate 20 02/03/17 09:05 Blood Pressure 104/57 02/03/17 09:05 O2 Sat by Pulse Oximetry (%) 93 L 02/03/17 11:20 Constitutional: Yes: Well Nourished, No Distress Eyes: Yes: Conjunctiva Clear, EOM Intact HENT: Yes: Atraumatic, Normocephalic Neck: Yes: Supple, Trachea Midline Cardiovascular: Yes: Regular Rate and Rhythm Respiratory: Yes: Cough, Rhonchi. No: Accessory Muscle Use, Rales, Stridor, Tachypnea, Wheezes ...Inspection: Yes: WNL ...Clubbing: No Gastrointestinal: Yes: Normal Bowel Sounds, Soft Renal/: Yes: WNL Breast(s): Yes: WNL Musculoskeletal: Yes: WNL Extremities: Yes: WNL Edema: No Peripheral Pulses WNL: Yes Integumentary: Yes: WNL Neurological: Yes: Alert, Oriented ...Motor Strength: WNL Psychiatric: Yes: WNL, Alert, Oriented Labs: CBC, BMP 02/03/17 07:30 02/03/17 07:30 Imaging - Results Chest X-ray: Report Reviewed, Image Reviewed Problem List - Problems (1) COPD exacerbation Code(s): J44.1 - CHRONIC OBSTRUCTIVE PULMONARY DISEASE W (ACUTE) EXACERBATION (2) Coronary artery disease Code(s): I25.10 - ATHSCL HEART DISEASE OF [place] CORONARY ARTERY W/O ANG PCTRS Qualifiers: Coronary Disease-Associated Artery/Lesion type: [place] artery [place] vs. transplanted heart: [place] heart Associated angina: without angina Qualified Code(s): I25.10 - Atherosclerotic heart disease of [place] coronary artery without angina pectoris (3) Cough Code(s): R05 - COUGH (4) Diabetes mellitus Code(s): E11.9 - TYPE 2 DIABETES MELLITUS WITHOUT COMPLICATIONS Qualifiers: Diabetes mellitus type: type 2 (5) Smoker Code(s): F17.200 - NICOTINE DEPENDENCE, UNSPECIFIED, UNCOMPLICATED Assessment/Plan BD TX Medrol Would consider to monitor off ABX as there has been significant resolution of his recent RUL PNA -> Suspect mild radiographic lag. Noted ID has been called. O2 as needed VTE prophylaxis Importance of smoking cessation discussed Will follow Thank you. Dr Zavala
--- NOTE | 2017-02-03 14:10 | PN ---
Progress Note, Physician History of Present Illness: Feels better - Current Medication List Current Medications: Active Medications Acetaminophen (Tylenol -) 325 mg PO Q4H PRN PRN Reason: PAIN Stop: 02/05/17 21:25 Last Admin: 02/03/17 09:36 Dose: 325 mg Acetaminophen (Tylenol -) 650 mg PO Q4H PRN PRN Reason: PAIN Stop: 02/05/17 21:32 Albuterol/Ipratropium (Duoneb -) 1 amp NEB Q6H PRN PRN Reason: SHORTNESS OF BREATH Last Admin: 02/03/17 01:22 Dose: 1 amp Arformoterol Tartrate (Brovana (Restricted To Pulmonology/Resp) -) 1 amp NEB BID [facility] Aspirin (Asa -) 81 mg PO DAILY [facility] Last Admin: 02/03/17 11:26 Dose: 81 mg Atorvastatin Calcium (Lipitor -) 20 mg PO HS [facility] Last Admin: 02/02/17 22:00 Dose: 20 mg Enoxaparin Sodium (Lovenox -) 40 mg SQ DAILY [facility] Last Admin: 02/03/17 11:29 Dose: Not Given Escitalopram Oxalate (Lexapro -) 20 mg PO DAILY [facility] Last Admin: 02/03/17 11:27 Dose: 20 mg Fenofibric Acid (Trilipix -) 135 mg PO DAILY [facility] Last Admin: 02/03/17 11:27 Dose: 135 mg Insulin Detemir (Levemir Vial) 20 units SQ HS [facility] Last Admin: 02/02/17 21:59 Dose: 20 units Lisinopril (Prinivil) 5 mg PO DAILY [facility] Last Admin: 02/03/17 11:26 Dose: 5 mg Metformin HCl (Glucophage -) 1,000 mg PO BID@0730,1630 [facility] Last Admin: 02/03/17 06:42 Dose: 1,000 mg Methylprednisolone Sodium Succinate (Solu-Medrol -) 40 mg IVPB Q8H-IV [facility] Last Admin: 02/03/17 11:26 Dose: 40 mg Metoprolol Succinate (Toprol Xl -) 50 mg PO DAILY [facility] Last Admin: 02/03/17 11:27 Dose: 50 mg Nicotine (Nicoderm Patch -) 21 mg TD DAILY [facility] Oxycodone HCl (Roxicodone -) 5 mg PO Q4H PRN PRN Reason: MODERATE PAIN Oxycodone HCl (Roxicodone -) 10 mg PO Q4H PRN PRN Reason: SEVERE PAIN Last Admin: 02/03/17 09:35 Dose: 10 mg Pantoprazole Sodium (Protonix -) 40 mg PO DAILY [facility] Last Admin: 02/03/17 11:26 Dose: 40 mg Piperacillin Sod/Tazobactam Sod (Zosyn 4.5gm Ivpb (Pre-Docked)) 4.5 gm IVPB Q6H -IV [facility] - Objective Vital Signs: Vital Signs Temperature 97.9 F 02/03/17 06:00 Pulse Rate 99 H 02/03/17 11:20 Respiratory Rate 20 02/03/17 09:05 Blood Pressure 104/57 02/03/17 09:05 O2 Sat by Pulse Oximetry (%) 93 L 02/03/17 11:20 Constitutional: Yes: No Distress Neck: Yes: Supple Cardiovascular: Yes: Regular Rate and Rhythm, S1, S2 Respiratory: Yes: CTA Bilaterally Gastrointestinal: Yes: Normal Bowel Sounds, Soft Neurological: Yes: Alert, Oriented. No: Loss of Sensation ...Motor Strength: WNL Labs: CBC, BMP 02/03/17 07:30 02/03/17 07:30 Problem List - Problems (1) Pneumonia Assessment/Plan: Changed to oral Augmentin as per ID Code(s): J18.9 - PNEUMONIA, UNSPECIFIED ORGANISM Qualifiers: Pneumonia type: due to unspecified organism Laterality: right Lung location: upper lobe of lung Qualified Code(s): J18.1 - Lobar pneumonia, unspecified organism (2) Smoker Assessment/Plan: Ongoing discussion regarding smoking cessation. Counselling in detail Code(s): F17.200 - NICOTINE DEPENDENCE, UNSPECIFIED, UNCOMPLICATED (3) COPD exacerbation Assessment/Plan: Much better today. Seen by pulmonary. Will change to oral Prednisone Code(s): J44.1 - CHRONIC OBSTRUCTIVE PULMONARY DISEASE W (ACUTE) EXACERBATION
[2017-02-03] MEDS: ARFORMOTEROL TARTRATE 15 MCG/2 ML VIAL NEB SCH ×2 (14:26→21:58)
--- NOTE | 2017-02-03 15:03 | PN ---
Progress Note (short form) - Note Progress Note: ID Consult dictated Acute exacerbation COPD RUL pneumonia- resolved OK for discharge on po Augmentin to complete 10d course Bronchodilators, steroids
[2017-02-03] MEDS: NICOTINE 21 MG/24 HOURS TOPICAL PATCH TD SCH (18:59)
[2017-02-03] MEDS: AMOX TR/POT CLAV 875MG/125MG TABLETS (FP) PO SCH (19:16)
[2017-02-03] MEDS: INSULIN DETEMIR 100 UNITS/ML MDV SQ SCH (21:13)
[2017-02-03] MEDS: ATORVASTATIN CA 20 MG TABLET (FP) PO SCH (21:13)
[2017-02-03] MEDS: predniSONE 20 MG TABLET (UD) PO SCH (23:07)
[2017-02-04 07:23] LABS: BASOPHIL 0.6 % (0-2.0); EOSINOPHIL 0.1 % (0-4.5); MCH 27.4 pg (25.7-33.7); MCHC 32.2 g/dl (32.0-35.9); MEAN CELL VOLUME 85.1 fl (80-96); MEAN PLT VOLUME 7.6 fl (7.5-11.1); NEUTROPHILS 79.8 % (42.8-82.8); PLATELET COUNT 250 K/MM3 (134-434); RDW 18.5 % (11.9-15.9); WHITE BLOOD COUNT 16.4 K/mm3 (4.0-10.0)
[2017-02-04 07:46] LABS: ALBUMIN 3.1 g/dl (3.4-5.0); ANION GAP 6 (8-16); CALCIUM 8.7 mg/dL (8.5-10.1); CO2 27 mmol/L (21-32); GLUCOSE,RANDOM 174 mg/dL (74-106)
[2017-02-04 07:49] LABS: ALK PHOS 55 U/L (45-117); BILIRUBIN,TOTAL 0.2 mg/dL (0.2-1.0); SGOT/AST 30 U/L (15-37); SGPT/ALT 36 U/L (12-78)
[2017-02-04] MEDS: metFORMIN HCL 500 MG TABLET (FP) PO SCH ×2 (08:31→17:53)
[2017-02-04] MEDS: AMOX TR/POT CLAV 875MG/125MG TABLETS (FP) PO SCH ×2 (08:31→17:53)
[2017-02-04] MEDS: oxyCODONE HCL 5 MG TABLET PO PRN ×2 (08:36→14:39)
[2017-02-04] MEDS: ACETAMINOPHEN 325 MG TABLET (FP) PO PRN ×2 (08:37→14:39)
[2017-02-04] MEDS: PANTOPRAZOLE 40 MG TABLET (FP) PO SCH (09:54)
[2017-02-04] MEDS: ESCITALOPRAM OXALATE 20 MG TABLET (FP) PO SCH (09:55)
[2017-02-04] MEDS: FENOFIBRIC ACID 135 MG CAP PO SCH (09:55)
[2017-02-04] MEDS: ASPIRIN 81 MG CHEWABLE TABLETS PO SCH (09:55)
[2017-02-04] MEDS: predniSONE 20 MG TABLET (UD) PO SCH (09:55)
[2017-02-04] MEDS: LISINOPRIL 5 MG TABLET (FP) PO SCH (09:55)
[2017-02-04] MEDS: ENOXAPARIN NA (PORCINE) 40 MG/0.4 ML DISP.SYRIN SQ SCH (09:55)
[2017-02-04] MEDS: NICOTINE 21 MG/24 HOURS TOPICAL PATCH TD SCH (09:56)
[2017-02-04] MEDS: METOPROLOL SUCCINATE 50 MG TAB.SR.24H (FP) PO SCH (10:02)
[2017-02-04] MEDS ORDERED: CLOPIDOGREL BISULFATE 75 MG TABLET (FP) PO SCH (11:00)
[2017-02-04] MEDS: ARFORMOTEROL TARTRATE 15 MCG/2 ML VIAL NEB SCH (11:22)
--- NOTE | 2017-02-04 14:03 | PN ---
Progress Note (short form) - Note Progress Note: Feels better. Less SOB and cough. Intake & Output 02/01/17 02/02/17 02/03/17 02/04/17 23:59 23:59 23:59 23:59 Intake Total 450 1000 Balance 450 1000 Weight 229 lb 6.4 oz Last Vital Signs Temp Pulse Resp BP Pulse Ox 97.8 F 71 20 116/62 93 L 02/04/17 10:39 02/04/17 11:22 02/04/17 10:39 02/04/17 10:39 02/04/17 11:22 Active Medications Acetaminophen (Tylenol -) 325 mg PO Q4H PRN PRN Reason: PAIN Stop: 02/05/17 21:25 Last Admin: 02/04/17 08:37 Dose: 325 mg Acetaminophen (Tylenol -) 650 mg PO Q4H PRN PRN Reason: PAIN Stop: 02/05/17 21:32 Last Admin: 02/03/17 19:18 Dose: 650 mg Albuterol/Ipratropium (Duoneb -) 1 amp NEB Q6H PRN PRN Reason: SHORTNESS OF BREATH Last Admin: 02/03/17 01:22 Dose: 1 amp Amoxicillin/Clavulanate Potassium (Augmentin - 875mg Tablet) 1 tab PO BID@0800, 1730 [facility] Last Admin: 02/04/17 08:31 Dose: 1 tab Arformoterol Tartrate (Brovana (Restricted To Pulmonology/Resp) -) 1 amp NEB BID [facility] Last Admin: 02/04/17 11:22 Dose: Not Given Aspirin (Asa -) 81 mg PO DAILY [facility] Last Admin: 02/04/17 09:55 Dose: 81 mg Atorvastatin Calcium (Lipitor -) 20 mg PO HS [facility] Last Admin: 02/03/17 21:13 Dose: 20 mg Clopidogrel Bisulfate (Plavix -) 75 mg PO DAILY [facility] Last Admin: 02/04/17 11:07 Dose: 75 mg Enoxaparin Sodium (Lovenox -) 40 mg SQ DAILY [facility] Last Admin: 02/04/17 09:55 Dose: Not Given Escitalopram Oxalate (Lexapro -) 20 mg PO DAILY [facility] Last Admin: 02/04/17 09:55 Dose: 20 mg Fenofibric Acid (Trilipix -) 135 mg PO DAILY [facility] Last Admin: 02/04/17 09:55 Dose: 135 mg Insulin Detemir (Levemir Vial) 20 units SQ HS [facility] Last Admin: 02/03/17 21:13 Dose: 20 units Lisinopril (Prinivil) 5 mg PO DAILY [facility] Last Admin: 02/04/17 09:55 Dose: 5 mg Metformin HCl (Glucophage -) 1,000 mg PO BID@0730,1630 [facility] Last Admin: 02/04/17 08:31 Dose: 1,000 mg Metoprolol Succinate (Toprol Xl -) 50 mg PO DAILY [facility] Last Admin: 02/04/17 10:02 Dose: 50 mg Nicotine (Nicoderm Patch -) 21 mg TD DAILY [facility] Last Admin: 02/04/17 09:56 Dose: Not Given Oxycodone HCl (Roxicodone -) 5 mg PO Q4H PRN PRN Reason: MODERATE PAIN Last Admin: 02/03/17 23:27 Dose: 5 mg Oxycodone HCl (Roxicodone -) 10 mg PO Q4H PRN PRN Reason: SEVERE PAIN Last Admin: 02/04/17 08:36 Dose: 10 mg Pantoprazole Sodium (Protonix -) 40 mg PO DAILY [facility] Last Admin: 02/04/17 09:54 Dose: 40 mg Prednisone (Deltasone -) 20 mg PO BID [facility] Last Admin: 02/04/17 09:55 Dose: 20 mg Constitutional: Yes: Well Nourished, No Distress Eyes: Yes: Conjunctiva Clear, EOM Intact HENT: Yes: Atraumatic, Normocephalic Neck: Yes: Supple, Trachea Midline Cardiovascular: Yes: Regular Rate and Rhythm Respiratory: Yes: Cough, Rhonchi. No: Accessory Muscle Use, Rales, Stridor, Tachypnea, Wheezes ...Inspection: Yes: WNL ...Clubbing: No Gastrointestinal: Yes: Normal Bowel Sounds, Soft Renal/: Yes: WNL Breast(s): Yes: WNL Musculoskeletal: Yes: WNL Extremities: Yes: WNL Edema: No Peripheral Pulses WNL: Yes Integumentary: Yes: WNL Neurological: Yes: Alert, Oriented ...Motor Strength: WNL Psychiatric: Yes: WNL, Alert, Oriented Labs: Laboratory Results - last 24 hr 08/06/1002/04/17 02/04/17 21:12 06:45 06:45 WBC 16.4 H RBC 4.40 Hgb 12.0 Hct 37.4 MCV 85.1 MCH 27.4 MCHC 32.2 RDW 18.5 H Plt Count 250 MPV 7.6 Neutrophils % 79.8 Lymphocytes % 15.9 D Monocytes % 3.6 L D Eosinophils % 0.1 D Basophils % 0.6 D Sodium 139 Potassium 4.4 Chloride 106 Carbon Dioxide 27 Anion Gap 6 L BUN 17 D Creatinine 1.0 D Creat Clearance w eGFR > 60 POC Glucometer 202 Random Glucose 174 H Calcium 8.7 Total Bilirubin 0.2 D AST 30 D ALT 36 Alkaline Phosphatase 55 Total Protein 6.0 L Albumin 3.1 L Problem List - Problems (1) COPD exacerbation Code(s): J44.1 - CHRONIC OBSTRUCTIVE PULMONARY DISEASE W (ACUTE) EXACERBATION (2) Coronary artery disease Code(s): I25.10 - ATHSCL HEART DISEASE OF [place] CORONARY ARTERY W/O ANG PCTRS Qualifiers: Coronary Disease-Associated Artery/Lesion type: [place] artery [place] vs. transplanted heart: [place] heart Associated angina: without angina Qualified Code(s): I25.10 - Atherosclerotic heart disease of [place] coronary artery without angina pectoris (3) Cough Code(s): R05 - COUGH (4) Diabetes mellitus Code(s): E11.9 - TYPE 2 DIABETES MELLITUS WITHOUT COMPLICATIONS Qualifiers: Diabetes mellitus type: type 2 (5) Smoker Code(s): F17.200 - NICOTINE DEPENDENCE, UNSPECIFIED, UNCOMPLICATED Assessment/Plan BD TX Prednisone taper PO ABX Per ID Importance of smoking cessation discussed No Pulmonary contraindication for D/C Dr Zavala Problem List - Problems (1) COPD exacerbation Code(s): J44.1 - CHRONIC OBSTRUCTIVE PULMONARY DISEASE W (ACUTE) EXACERBATION (2) Coronary artery disease Code(s): I25.10 - ATHSCL HEART DISEASE OF [place] CORONARY ARTERY W/O ANG PCTRS Qualifiers: Coronary Disease-Associated Artery/Lesion type: [place] artery [place] vs. transplanted heart: [place] heart Associated angina: without angina Qualified Code(s): I25.10 - Atherosclerotic heart disease of [place] coronary artery without angina pectoris (3) Cough Code(s): R05 - COUGH (4) Diabetes mellitus Code(s): E11.9 - TYPE 2 DIABETES MELLITUS WITHOUT COMPLICATIONS Qualifiers: Diabetes mellitus type: type 2 (5) Smoker Code(s): F17.200 - NICOTINE DEPENDENCE, UNSPECIFIED, UNCOMPLICATED
[2017-02-04 15:43] VITALS: TEMP 97.9
[2017-02-04 18:10] VITALS: BP 104/69; PULSE 61
--- NOTE | 2017-02-04 18:46 | DS ---
Physical Examination Vital Signs: Vital Signs Temperature 97.9 F 02/04/17 14:41 Pulse Rate 61 02/04/17 18:09 Respiratory Rate 20 02/04/17 18:09 Blood Pressure 104/69 02/04/17 18:09 O2 Sat by Pulse Oximetry (%) 93 L 02/04/17 11:22 Findings/Remarks: 61 y/o male admitted with COPD exacerbation and resolving pneumonia. Seen by pulmonary and ID. Improved to baseline. Being discharged on tapering steroids and oral antibiotics. Follow up in 1 week Constitutional: Yes: No Distress Neck: Yes: Supple Cardiovascular: Yes: Regular Rate and Rhythm, S1, S2 Respiratory: Yes: Regular Gastrointestinal: Yes: Normal Bowel Sounds, Soft Neurological: Yes: Alert, Oriented Labs: CBC, BMP 02/04/17 06:45 02/04/17 06:45 Discharge Summary Reason For Visit: PNEUMONIA Current Active Problems Pneumonia (Acute) Smoker (Acute) Condition: Good - Instructions Diet, Activity, Other Instructions: Smoking cessation emphasized Referrals: Vanessa Caban MD [Primary Care Provider] - Disposition: HOME - Home Medications Comprehensive Discharge Medication List: Ambulatory Orders Aspirin [ASA -] 81 mg PO DAILY 11/18/14 Atorvastatin Ca [Lipitor] 20 mg PO HS 11/18/14 Clopidogrel Bisulfate [Plavix -] 75 mg PO DAILY 11/18/14 Escitalopram Oxalate [Lexapro -] 20 mg PO DAILY 11/18/14 Fenofibrate Nanocrystallized [Tricor] 145 mg PO DAILY 11/18/14 Lisinopril [Prinivil] 5 mg PO DAILY 11/18/14 Metformin HCl [Glucophage] 1,000 mg PO BID 11/18/14 Metoprolol Succinate [Toprol Xl] 50 mg PO DAILY 11/18/14 Insulin (Levemir) [Levemir Vial] 20 units SQ HS ml 06/11/15 Oxycodone HCl/Acetaminophen [Percocet 10-325 mg Tablet -] 1 - 2 tab PO Q4H #180 tablet 06/11/15 Pantoprazole Sodium [Protonix -] 40 mg PO DAILY #30 tablet.ec 06/11/15 Amox-Tr/K Cl [Augmentin 875-125mg Tablet -] 1 tab PO BID@0800,1730 #16 tablet Methylprednisolone [Medrol Dose Gene] 4 mg PO ASDIR #21 tablet 02/04/17 Nicotine Patch [Nicoderm Patch -] 21 mg TD DAILY #30 patch 02/04/17
--- NOTE | 2017-02-05 10:19 | CONS ---
DATE OF CONSULTATION: 02/03/2017 He is a 61 -year-old male, history of COPD, current smoker, evaluated for pneumonia. He presented to the hospital with complaints of shortness of breath and cough. The patient had initially presented to the hospital on January 24, 2017, at that time a chest x-ray revealed a right upper lobe pneumonia. He was treated with a course of Augmentin and Zithromax. He has been adherent to the antibiotic regimen. A followup chest x-ray was performed today and showed complete resolution of the infiltrate. He reports cough which has improved productive of scanty amount of whitish sputum. He denies any hemoptysis, no complaints of shortness of breath or chest pain. No fever or chills. PAST MEDICAL HISTORY: Positive for COPD, CAD, diabetes mellitus, osteoarthritis. PAST SURGICAL HISTORY: Status post right total knee replacement. ALLERGIES: MORPHINE. MEDICATIONS: Aspirin, Lipitor, Plavix, Lexapro, Tricor, Prinivil, Glucophage, Toprol, Protonix. SOCIAL HISTORY: Positive for active tobacco use. LABORATORY DATA: White count 13.5, hematocrit 38.4, platelet count 251, BUN 13, creatinine 1.3. SYSTEMS REVIEW: Neurologic: No loss of consciousness, seizure activity, focal weakness. Cardiac: Negative chest pain and palpitations. Respiratory: As per HPI. Gastrointestinal: Negative vomiting or diarrhea. Genitourinary: Negative for urinary tract infection. PHYSICAL EXAMINATION: General: He is awake and alert, out of bed to chair. He is ambulatory without shortness of breath. Vital Signs: Temperature 97.9, blood pressure 104/57, pulse 99 regular, respirations 18 per minute. Eyes: Sclerae anicteric. Heart: Heart sounds S1, S2. Lungs: Clear bilaterally. No rhonchi, rales or wheezing. Abdomen: Soft, no tenderness elicited. No mass, rebound or rigidity. Extremities: Negative for edema. IMPRESSION: 1. Acute exacerbation chronic obstructive pulmonary disease. 2. Right upper lobe pneumonia resolving. Okay for discharge on p.o. Augmentin to complete 10-day course. Continue bronchodilators, taper steroids. Thank you for the kind referral. SHENA ORTIZ M.D. [id number]
== END 2017-02-04 19:04 | disposition home or self-care (01) | DRG 190 ==
LOC: JER 14:55 → JERBED 17:42 → J5S 19:23
PROVIDERS: ADMIT Internal Medicine; ATTEND Internal Medicine
DX: J44.0 Chronic obstructive pulmonary disease with (acute) lower respiratory infection (principal); J18.9 Pneumonia, unspecified organism; J44.1 Chronic obstructive pulmonary disease with (acute) exacerbation; F17.210 Nicotine dependence, cigarettes, uncomplicated; E11.9 Type 2 diabetes mellitus without complications; Z79.4 Long term (current) use of insulin; I25.10 Atherosclerotic heart disease of native coronary artery without angina pectoris; Z98.61 Coronary angioplasty status; I25.2 Old myocardial infarction; Z96.651 Presence of right artificial knee joint; R39.15 Urgency of urination
CPT/HCPCS: 36415; 71020-TC; 80053; 81003; 82553; 84484; 85025; 87040; 93005; 93010; 94640; 99284-25

== ENCOUNTER 2024-04-01 13:48 | Emergency (ER) | payer OTHER ==
[2024-04-01 13:54] VITALS: BP 136/76; PULSE 76; RESP 16; TEMP 97.6; BMI 27.7
== END 2024-04-01 15:19 | disposition home or self-care (01) ==
LOC: JERFT 13:48
DX: S92.512A Displaced fracture of proximal phalanx of left lesser toe(s), initial encounter for closed fracture (principal); W55.12XA Struck by horse, initial encounter
CPT/HCPCS: 73630-TC-RT-FY; 99283-25